=== PATIENT | female | born 1955 | race Caucasian/White ===

== ENCOUNTER 2017-06-23 12:47 | Inpatient (IN) | payer OTHER ==
[2017-06-23] MEDS ORDERED: LEVALBUTEROL 1.25 MG/3 ML NEB ONE (13:04)
[2017-06-23] MEDS ORDERED: NA CHLORIDE 0.9% 500 ML ONE (13:29)
[2017-06-23] MEDS ORDERED: Magnesium Sulfate 2gm IVPB 2 G/50 ML BAG IV ONE (13:29)
[2017-06-23] MEDS ORDERED: METHYLPREDNISOLONE 125 MG INJ ONE (13:29)
[2017-06-23] MEDS ORDERED: ASPIRIN 81 MG CHEWABLE TABLET ONE (13:29)
[2017-06-23] MEDS ORDERED: METOPROLOL TARTRATE 5 MG/5 ML INJ IV ONE (13:36)
[2017-06-23 14:07] LABS: Arterial Blood Carboxyhemoglob 1.2 % (0-1.5); Blood Gas Oxyhemoglobin 93.1 % (94-97); Blood O2 Saturation 94.6 % (92-98.5)
[2017-06-23] MEDS ORDERED: NA CHLORIDE 0.9% 1,000 ML ONE (14:07)
[2017-06-23 14:11] LABS: Absolute Lymphocytes (CBC) 1.1 K/uL (0.7-4.9); Absolute Monocytes 0.4 K/uL (0.1-1.3); Absolute Neutrophil 5.2 K/uL (1.8-8.0); Basophils % 0.5 % (0-1.3); Eosinophils % 8.3 % (0-4.4); Hematocrit 38.4 % (36.0-45.0); Lymphocytes % 14.7 % (15.3-44.8); MCH 28.4 pg (27.0-35.0); MCV 84.8 fL (80-100); MPV 8.6 fL (7.6-11.3); Monocytes % 5.7 % (3.3-12.3); RBC Red Blood Cell Count 4.52 M/uL (3.86-4.86)
[2017-06-23 14:15] LABS: Protime INR 1.05
[2017-06-23 14:18] LABS: Potassium 3.7 mEq/L (3.6-5.0)
[2017-06-23 14:25] LABS: Albumin 4.7 g/dL (3.2-5.5); Bilirubin Direct 0.1 mg/dL (0-0.2); Bilirubin Total 0.4 mg/dL (0.3-1.2); Magnesium 1.6 mg/dL (1.8-2.5); Protein, Total 8.8 g/dL (6.0-8.3)
--- NOTE | 2017-06-23 14:28 | RAD REPORT ---
EXAM DESCRIPTION: RAD - Chest Single View - 06/23/2017 2:02 pm CLINICAL HISTORY: Dyspnea, cough, shortness of breath COMPARISON: September 2010 TECHNIQUE: AP portable chest image was obtained 1354 hours . FINDINGS: No peripheral mass, consolidation or failure finding. Lung markings are not substantially different from the comparison. A few small granulomas are seen. Trachea is midline. Heart and vascula ture are normal. No measurable pleural effusion and no pneumothorax. No gross bony abnormality seen. No acute aortic findings suspected. IMPRESSION: No acute cardiopulmonary process. No significant change from prior imaging.
--- NOTE | 2017-06-23 15:18 | RAD REPORT ---
EXAM DESCRIPTION: CT - Chest For Pe Angio - 06/23/2017 3:02 pm CLINICAL HISTORY: Shortness of breath COMPARISON: None. TECHNIQUE: Dynamically enhanced 3 mm thick images of the chest were obtained during administration o f approximately 150mL Isovue 370 IV contrast. Coronal and oblique reconstruction images were generate d and reviewed. Exam utilizes a protocol to evaluate the pulmonary arterial tree. All CT scans are performed using dose optimization technique as appropriate and may include automated exposure control or mA/KV adjustment according to patient size. FINDINGS: No pulmonary emboli are identified. The aorta as imaged shows no acute or suspicious finding. No pericardial thickening or effusion. No focal consolidation. Minimal stranding in each posterior gutter could be subsegmental atelectasis or minimal infiltrate. Motion limits fine detail in the lung parenchyma. No pleural effusion or pleur al thickening. No mediastinal or hilar suspicious masses. No chest wall masses or abnormal axillary lymphadenopathy. IMPRESSION: No pulmonary emboli identified. Subsegmental atelectasis versus minimal interstitial infiltrate each posterior gutter.
[2017-06-23] MEDS ORDERED: Levofloxacin 750mg IV 750 MG/150 ML BAG IV ONE (15:37)
--- NOTE | 2017-06-23 15:43 | EDPHYS ---
Physician Documentation [facility] Name: Nessa Medrano Age: 62 yrs Sex: Female : 1955 Arrival Date: 06/23/2017 Time: 12:51 Bed 4 Private MD: Calvin Diaz E ED Physician Calvin Fung HPI: 06/23 13:09 This 62 yrs old Female presents to ER via Ambulatory with complaints of cp Breathing Difficulty. 13:09 The patient has shortness of breath at rest. Onset: The symptoms/episode began/occurred cp 2 day(s) ago. 13:09 Duration: The symptoms are continuous, and are steadily getting worse. Associated signs cp and symptoms: Pertinent negatives: diaphoresis, fever, hemoptysis, vomiting. 13:09 The patient has not experienced similar symptoms in the past. cp Historical: - Allergies: 12:56 No Known Allergies; hj - Home Meds: 12:56 metformin 500 mg Oral Tb24 1 tab once daily [Active]; Tricor 145 mg Oral tab 1 tab once hj daily [Active]; Xanax 0.5 mg Oral tab 1 tab 3 times per day [Active]; - PMHx: 12:56 Diabetes - NIDDM; Hyperlipidemia; hj - PSHx: 12:56 rotator cuff; hj - Immunization history:: Adult Immunizations unknown. - Social history:: Smoking status: Patient/guardian denies using tobacco. ROS: 13:50 Constitutional: Negative for body aches, chills, fever, poor PO intake. cp 13:50 Eyes: Negative for injury, pain, redness, and discharge. cp 13:50 ENT: Negative for drainage from ear(s), ear pain, sore throat, difficulty swallowing, difficulty handling secretions. 13:50 Cardiovascular: Negative for chest pain, edema. 13:50 Respiratory: Positive for cough, shortness of breath, Negative for hemoptysis. 13:50 Abdomen/GI: Negative for abdominal pain, vomiting, diarrhea, constipation, black/tarry stool, rectal bleeding. 13:50 Back: Negative for radiated pain. 13:50 : Negative for urinary symptoms. 13:50 Skin: Negative for cellulitis, rash. 13:50 Neuro: Negative for altered mental status, headache, syncope, near syncope, weakness. 13:50 All other systems are negative. Exam: 13:21 ECG was reviewed by the Attending Physician. cp 13:53 Constitutional: The patient appears alert, awake, non-toxic, well developed, well cp nourished, in obvious distress, moderately distressed. 13:53 Head/Face: Normocephalic, atraumatic. Eyes: Pupils equal round and reactive to light, cp extra-ocular motions intact. Lids and lashes normal. Conjunctiva and sclera are non-icteric and not injected. Cornea within normal limits. Periorbital areas with no swelling, redness, or edema. ENT: Nares patent. No nasal discharge, no septal abnormalities noted. Tympanic membranes are normal and external auditory canals are clear. Oropharynx with no redness, swelling, or masses, exudates, or evidence of obstruction, uvula midline. Mucous membranes moist. Neck: Trachea midline, no thyromegaly or masses palpated, and no cervical lymphadenopathy. Supple, full range of motion without nuchal rigidity, or vertebral point tenderness. No Meningismus. Chest/axilla: Normal chest wall appearance and motion. Nontender with no deformity. No lesions are appreciated. 13:53 Cardiovascular: Rate: tachycardic, Rhythm: regular, Pulses: Pulses are 2+ in right radial artery and left radial artery. Heart sounds: murmur, not appreciated, Edema: is not appreciated, JVD: is not appreciated. 13:53 Respiratory: moderate respiratory distress is noted, Respirations: labored breathing, that is moderate, shallow respirations, that is moderate, tachypnea, that is moderate, Breath sounds: decreased breath sounds, that are moderate, throughout, + upper airway congestion. wheezing: is not appreciated, is heard diffusely. 13:53 Abdomen/GI: Inspection: abdomen appears normal, Bowel sounds: active, all quadrants, Palpation: abdomen is soft and non-tender, in all quadrants, rebound tenderness, is not appreciated, voluntary guarding, is not appreciated, involuntary guarding, is not appreciated. 13:53 Back: pain, is absent, ROM is normal. 13:53 Skin: cellulitis, is not appreciated, no rash present. 13:53 Neuro: Orientation: to person, place \T\ time. Mentation: is normal, Cerebellar function: is grossly normal, Motor: moves all fours, strength is normal, Sensation: no obvious gross deficits. Vital Signs: 12:57 BP 181 / 94; Pulse 149; Resp 25; Temp 99.0(TE); Pulse Ox 84% on R/A; Weight 72.57 kg; hj Height 5 ft. 3 in. (160.02 cm); Pain 0/10; 14:18 BP 151 / 67; Pulse 113; Resp 20; Pulse Ox 99% on 8% Venturi mask; aj 12:57 Body Mass Index 28.34 (72.57 kg, 160.02 cm) hj MDM: 13:09 Patient medically screened. cp 14:00 Differential diagnosis: Bronchitis CHF exacerbation, Chronic Obstructive Pulmonary cp Disease pneumonia, pulmonary edema, Pulmonary Embolism Sepsis Unstable Angina. 15:35 Data reviewed: vital signs, nurses notes, lab test result(s), EKG, radiologic studies, cp CT scan, plain films, and as a result, I will admit patient. 15:35 Antibiotic administration: Levaquin given. Response to treatment: the patient's cp symptoms have markedly improved after treatment. 15:40 Physician consultation: Desmond Leger MD was called at 15:35, was contacted at 15:35, regarding admission, to the telemetry unit. patient's condition. 06/23 13:08 Order name: ABG; Complete Time: 14:31 cp 06/23 13:08 Order name: Blood Culture Adult (2) cp 05/ 13:08 Order name: BMP; Complete Time: 14:31 cp 05 13:08 Order name: BNP; Complete Time: 14:31 cp 06/23 13:08 Order name: CBC with Diff; Complete Time: 14:31 cp 06/23 15:22 Interpretation: Normal except: LYM% 14.7; EOSINOPHIL % 8.3; EOSA 0.6. cp 0503 13:08 Order name: Ckmb; Complete Time: 14:31 cp 05 13:08 Order name: CPK; Complete Time: 14:31 cp 06/23 13:08 Order name: Hepatic Function; Complete Time: 14:31 cp 05 13:08 Order name: Lipase; Complete Time: 14:31 cp 05 13:08 Order name: Magnesium; Complete Time: 14:31 cp 05 13:08 Order name: PT-INR; Complete Time: 14:31 cp 05 13:08 Order name: Ptt, Activated; Complete Time: 14:31 cp 05 13:08 Order name: Troponin (emerg Dept Use Only); Complete Time: 14:31 cp 06/23 13:08 Order name: Influenza Screen (a \T\ B) cp 06/23 13:08 Order name: XRAY CXR (1 view); Complete Time: 14:31 cp 06/23 13:08 Order name: EKG; Complete Time: 13:44 cp 06/23 13:22 Order name: Lactate; Complete Time: 15:21 cp 06/23 15:21 Interpretation: Reviewed. cp 05 13:22 Order name: Procalcitonin; Complete Time: 15:35 cp 06/23 14:32 Order name: CT Chest For PE Angio; Complete Time: 15:21 cp 06/23 15:23 Order name: Urine Microscopic Only 06/23 16:40 Order name: Urine Dipstick--Ancillary (enter results) 06/23 16:47 Order name: Urine Dipstick-Ancillary EDOR 06/23 17:56 Order name: Lactate Sepsis 2 HR Follow-up EDOR 06/23 13:08 Order name: Cardiac monitoring; Complete Time: 13:46 cp 06/23 13:08 Order name: EKG - Nurse/Tech; Complete Time: 13:46 cp 06/23 13:08 Order name: IV Saline Lock; Complete Time: 13:46 cp 06/23 13:08 Order name: Labs collected and sent; Complete Time: 13:46 cp 06/23 13:08 Order name: O2 Per Protocol; Complete Time: 13:46 cp 06/23 13:08 Order name: O2 Sat Monitoring; Complete Time: 13:46 cp 06/23 13:08 Order name: Urine Dipstick-Ancillary (obtain specimen); Complete Time: 16:14 cp EC:21 Rate is 142 beats/min. Rhythm is regular. MD interval is normal. QRS interval is cp normal. QT interval is normal. Interpreted by me. Reviewed by me. Administered Medications: 13:33 Drug: SOLU-Medrol 125 mg Route: IVP; Site: right antecubital; hb 13:33 Drug: Aspirin 325 mg Route: PO; hb 13:33 Drug: Magnesium Sulfate 2 grams Route: IVPB; Infused Over: 2 hrs; Site: right hb antecubital; 15:30 Follow up: Response: No adverse reaction; IV Status: Completed infusion hb 13:33 Drug: NS 0.9% 500 ml Route: IV; Rate: bolus; Site: right antecubital; hb 14:15 Follow up: Response: No adverse reaction; IV Status: Completed infusion hb 13:44 Drug: Lopressor 5 mg Route: IVP; Site: right antecubital; hb 14:30 Follow up: Response: No adverse reaction hb 14:11 Drug: NS 0.9% (30 ml/kg) 30 ml/kg Route: IV; Rate: bolus; Site: right antecubital; aj 15:44 Drug: LevaQUIN 750 mg Volume: 150 ml; Route: IVPB; Infused Over: 90 mins; Site: right hb antecubital; Disposition: 06/24 06:52 Co-signature as Attending Physician, Calvin Fung MD I agree with the assessment and nd plan of care. Disposition: 06/23/17 15:42 Hospitalization ordered by Desmond Leger for Inpatient Admission. Preliminary diagnosis are Hypoxemia, Shortness of breath. - Bed requested for Telemetry/MedSurg (Inpatient). - Status is Inpatient Admission. aj - Condition is Stable. - Problem is new. - Symptoms have improved. UTI on Admission? No Signatures: Dispatcher [employer] EDMS Vielka Danielle RN RN aj Williams, Irene, RN RN iw Gallardo, Ana ag Joaquin, Henry, RN Vel Sousa PA PA cp Baxter, Heather, Calvin Anderson RN, MD MD nd Corrections: (The following items were deleted from the chart) 06/23 15:22 15:22 Normal except: LYM% 14.7; EOSINOPHIL % 8.3. cp cp 17:05 15:42 Hospitalization Ordered by Desmond Leger MD for Inpatient Admission. Preliminary ag diagnosis is Hypoxemia; Shortness of breath. Bed requested for Telemetry/MedSurg (Inpatient). Status is Inpatient Admission. Condition is Stable. Problem is new. Symptoms have improved. UTI on Admission? No. cp 17:59 17:05 06/23/2017 15:42 Hospitalization Ordered by Desmond Leger MD for Inpatient aj Admission. Preliminary diagnosis is Hypoxemia; Shortness of breath. Bed requested for Telemetry/MedSurg (Inpatient). Status is Inpatient Admission. Condition is Stable. Problem is new. Symptoms have improved. UTI on Admission? No. ag
--- NOTE | 2017-06-23 15:43 | ER ---
Nurse's Notes [facility] Name: Nessa Medrano Age: 62 yrs Sex: Female : 1955 Arrival Date: 06/23/2017 Time: 12:51 Bed 4 Private MD: Calvin Diaz E Diagnosis: Hypoxemia;Shortness of breath Presentation: 06/23 12:53 Presenting complaint: Patient states: i have a cold and i had a hard time breathing; hj this started Tuesday, nasal drainage, congestion and now i have difficulty breathing; denies fever and chills; took Tessalon perle;. Transition of care: patient was not received from another setting of care. Onset of symptoms was June 23, 2017. Initial Sepsis Screen: Does the patient meet any 2 criteria? No. Patient's initial sepsis screen is negative. Does the patient have a suspected source of infection? No. Patient's initial sepsis screen is negative. Care prior to arrival: None. 12:53 Method Of Arrival: Ambulatory 12:53 Acuity: CONRADO 3 hj 13:02 Acuity: CONRADO 2 hb Triage Assessment: 12:56 General: Appears in no apparent distress. uncomfortable, Behavior is calm, cooperative, hj appropriate for age. Pain: Denies pain. Respiratory: Reports labored breathing Onset: The symptoms/episode began/occurred yesterday, the patient has moderate shortness of breath. Historical: - Allergies: 12:56 No Known Allergies; hj - Home Meds: 12:56 metformin 500 mg Oral Tb24 1 tab once daily [Active]; Tricor 145 mg Oral tab 1 tab once hj daily [Active]; Xanax 0.5 mg Oral tab 1 tab 3 times per day [Active]; - PMHx: 12:56 Diabetes - NIDDM; Hyperlipidemia; hj - PSHx: 12:56 rotator cuff; hj - Immunization history:: Adult Immunizations unknown. - Social history:: Smoking status: Patient/guardian denies using tobacco. Screenin:24 Abuse screen: Denies threats or abuse. Denies injuries from another. Nutritional iw screening: No deficits noted. Tuberculosis screening: No symptoms or risk factors identified. 17:50 Fall Risk None identified. iw Assessment: 12:56 Cardiovascular: Rhythm is. Respiratory: Airway is patent Respiratory effort is even, hj unlabored, Respiratory pattern is regular, Breath sounds with wheezes. 13:21 General: Appears in no apparent distress. Behavior is calm, cooperative. General: iw Denies fever. Neuro: Level of Consciousness is awake, alert, obeys commands, Oriented to person, place, time, situation. Cardiovascular: Capillary refill < 3 seconds in bilateral fingers Patient's skin is warm and dry. Cardiovascular: Reports palpitations, shortness of breath, Denies chest pain. Respiratory: Reports shortness of breath cough that is Respiratory effort is even, unlabored. Derm: Skin is pink, warm \T\ dry. normal. Musculoskeletal: Range of motion: intact in all extremities. Vital Signs: 12:57 BP 181 / 94; Pulse 149; Resp 25; Temp 99.0(TE); Pulse Ox 84% on R/A; Weight 72.57 kg; hj Height 5 ft. 3 in. (160.02 cm); Pain 0/10; 14:18 BP 151 / 67; Pulse 113; Resp 20; Pulse Ox 99% on 8% Venturi mask; aj 12:57 Body Mass Index 28.34 (72.57 kg, 160.02 cm) ED Course: 12:51 Patient arrived in ED. rg4 12:51 Calvin Diaz MD is Private Physician. rg4 12:55 Triage completed. hj 12:57 Arm band placed on right wrist. hj 13:00 Initial lab(s) drawn, by me. Inserted saline lock: 20 gauge in right antecubital area, iw using aseptic technique. Blood collected. 13:06 Vel Rubio PA is PHCP. cp 13:06 Calvin Fung MD is Attending Physician. cp 13:19 Lauren Espinoza, SHA is Primary Nurse. iw 13:22 EKG done, by dental laboratory technician apprentice. reviewed by Vel SALAS. dt2 13:56 X-ray completed. Portable x-ray completed in exam room. Patient tolerated procedure sw well. 14:02 XRAY CXR (1 view) In Process Unspecified. EDMS 15:01 CT completed. Patient tolerated procedure well. Patient moved to CT via stretcher. nj Patient moved back from CT. 15:02 CT Chest For PE Angio In Process Unspecified. EDMS 15:41 Desmond Leger MD is Hospitalizing Provider. cp 16:14 Urine Microscopic Only Sent. hb 17:57 Patient has correct armband on for positive identification. aj 17:57 No provider procedures requiring assistance completed. Patient admitted, IV remains in aj place. intact. Administered Medications: 13:33 Drug: SOLU-Medrol 125 mg Route: IVP; Site: right antecubital; hb 13:33 Drug: Aspirin 325 mg Route: PO; hb 13:33 Drug: Magnesium Sulfate 2 grams Route: IVPB; Infused Over: 2 hrs; Site: right hb antecubital; 15:30 Follow up: Response: No adverse reaction; IV Status: Completed infusion hb 13:33 Drug: NS 0.9% 500 ml Route: IV; Rate: bolus; Site: right antecubital; hb 14:15 Follow up: Response: No adverse reaction; IV Status: Completed infusion hb 13:44 Drug: Lopressor 5 mg Route: IVP; Site: right antecubital; hb 14:30 Follow up: Response: No adverse reaction hb 14:11 Drug: NS 0.9% (30 ml/kg) 30 ml/kg Route: IV; Rate: bolus; Site: right antecubital; aj 15:44 Drug: LevaQUIN 750 mg Volume: 150 ml; Route: IVPB; Infused Over: 90 mins; Site: right hb antecubital; Outcome: 15:42 Decision to Hospitalize by Provider. cp 17:57 Admitted to Med/surg accompanied by tech, via stretcher, with chart. aj 17:57 Condition: good 17:57 Instructed on the need for admit. 17:59 Patient left the ED. aj Signatures: Dispatcher [employer] EDMS Vielka Danielle RN RN aj Williams, Irene RN Bhumika Dillon Henry, RN RN hj Page, Corey, PA PA cp Baxter, Heather, RN RN hb Garcia, Rubi rg4 Ovidio Kim Danielle dt2 Corrections: (The following items were deleted from the chart) 12:59 12:57 Pulse 149bpm; Resp 25bpm; Pulse Ox 84% RA; Temp 99.0F Temporal; 72.57 kg; Height hj 5 ft. 3 in.; BMI: 28.3; Pain 0/10; hj
--- NOTE | 2017-06-23 16:20 | EKG ---
Test Date: 2017-06-23 Test Time: 13:15:18 Director Of Sales: KASSIDY MEASUREMENT RESULTS: Intervals: Rate: 142 VT: 134 QRSD: 86 QT: 280 QTc: 430 [place]: P: 72 VT: 134 QRS: 81 T: 49 INTERPRETIVE STATEMENTS: Sinus tachycardia Otherwise normal ECG Compared to ECG 10/01/2010 22:14:39 Sinus rhythm no longer present Electronically Signed On 06-23-17 16:18:52 CDT by Mason Conway
[2017-06-23] MEDS ORDERED: ONDANSETRON 4 MG/2 ML VIAL IV PRN (16:24)
[2017-06-23] MEDS ORDERED: ACETAMINOPHEN 500 MG TAB PO PRN (16:24)
[2017-06-23] MEDS: INSULIN -REGULAR HUMAN 50 UNIT/0.5 ML ML SQ SCH ×2 (16:30→21:00)
[2017-06-23] MEDS ORDERED: GLUCAGON 1 MG/VIAL IM PRN (16:43)
[2017-06-23] MEDS ORDERED: D50W 25 GM/50 ML SYRINGE IV PRN (16:43)
[2017-06-23 16:47] LABS: Urine Blood NEGATIVE (NEG); Urine Glucose NEGATIVE (NEG); Urine Protein NEGATIVE (NEG)
[2017-06-23 16:49] LABS: Urine Bacteria NONE SEEN /HPF (<20); Urine Culture Reflex Order NOT NEEDED; Urine RBC NONE SEEN /HPF (NONE SEEN)
[2017-06-23] MEDS: ENOXAPARIN 40 MG/0.4 ML SQ SCH (18:15)
[2017-06-23] MEDS: NA CHLORIDE 0.9% 1,000 ML IV SCH (18:16)
[2017-06-23] MEDS: METHYLPREDNISOLONE 40 MG INJ IV SCH ×2 (18:23→23:55)
[2017-06-23] MEDS ORDERED: POTASSIUM CL SA 10 MEQ TAB PO ONE (20:00)
[2017-06-23] MEDS: LEVALBUTEROL 1.25 MG/3 ML NEB NEB PRN (21:10)
[2017-06-23] MEDS: IPRATROPIUM BROM 0.5MG/2.5ML NEB PRN (21:10)
[2017-06-24 02:31] VITALS: BMI 28.3
[2017-06-24] MEDS: NA CHLORIDE 0.9% 1,000 ML IV SCH ×3 (03:53→23:00)
--- NOTE | 2017-06-24 05:04 | P.HP ---
Certification for Inpatient Patient admitted to: Inpatient With expected LOS: >2 Midnights Practitioner: I am a practitioner with admitting privileges, knowledge of patient current condition, hospital course, and medical plan of care. Services: Services provided to patient in accordance with Admission requirements found in Title 42 Section 412.3 of the Code of Federal Regulations Patient History Date of Service: 06/23/17 Reason for admission: COPD exacerbation History of Present Illness: Ms Medrano is a 62 years old woman with history of COPD, IDDM, HTN, who start about 2 days ago with progressive SOB. It was associated with runny nose, productive cough with greenish secretions and wheezing. She denied fever or chills. At arrival to ER her temperature was 99.8 F. Lab work remarkable for normal WBC count, but elevated lactate. CTA shows Subsegmental atelectasis versus minimal interstitial infiltrate each posterior gutter, no PE. Allergies No Known Allergies Allergy (Verified 06/23/17 21:48) Home Medications: Alprazolam [Xanax] 0.5 mg PO BEDTIME PRN 06/24/17 Fenofibrate [Tricor] 145 mg PO DAILY 06/24/17 Metformin ER [Glucophage ER] 500 mg PO DAILY 06/24/17 - Past Medical/Surgical History Diabetic: Yes -: hyperlipedemia -: Left rotator cuff sx - Family History Mother -: Hypertension, Stroke Notes: dementia Father -: Cancer - Social History Smoking Status: Never smoker Alcohol use: No CD- Drugs: No Caffeine use: Yes Place of Residence: Home Review of Systems 10-point ROS is otherwise unremarkable Physical Examination - Vital Signs Temperature: 98.6 F Blood Pressure: 135/72 Pulse: 103 Respirations: 18 Pulse Ox (%): 96 - Physical Exam General: Alert, In no apparent distress HEENT: Atraumatic, PERRLA, Mucous membr. moist/pink, EOMI, Sclerae nonicteric Neck: Supple, 2+ carotid pulse no bruit, No LAD, Without JVD or thyroid abnormality Respiratory: Diminished, Expiratory wheezes Cardiovascular: Regular rate/rhythm, Normal S1 S2 Gastrointestinal: Normal bowel sounds, No tenderness Musculoskeletal: No tenderness Integumentary: No rashes Neurological: Normal speech, Normal strength at 5/5 x4 extr, Normal tone, Normal affect Lymphatics: No axilla or inguinal lymphadenopathy - Studies Laboratory Data (last 24 hrs) 06/23/17 13:35: PT 12.4, INR 1.05, APTT 30.0 06/23/17 13:35: WBC 7.3, Hgb 12.9, Hct 38.4, Plt Count 227 06/23/17 13:35: B-Natriuretic Peptide 29 06/23/17 13:35: Sodium 141, Potassium 3.7, BUN 14, Creatinine 0.79, Glucose 132 H, Magnesium 1.6 L, Total Bilirubin 0.4, AST 25, ALT 26, Alkaline Phosphatase 55 , Lipase 23 Microbiology Data (last 24 hrs): 06/23/17 13:10 Nasopharnyx Influenza Type A Antigen Screen - Final 06/23/17 13:10 Nasopharnyx Influenza Type B Antigen Screen - Final Assessment and Plan - Problems (Diagnosis) (1) COPD exacerbation Current Visit: Yes Status: Acute (2) Acute bronchitis Current Visit: Yes Status: Acute Qualifiers: Bronchitis organism: unspecified organism Qualified Code(s): J20.9 - Acute bronchitis, unspecified (3) HTN (hypertension) Current Visit: Yes Status: Acute Qualifiers: Hypertension type: essential hypertension Qualified Code(s): I10 - Essential (primary) hypertension (4) Diabetes mellitus Current Visit: Yes Status: Acute Qualifiers: Diabetes mellitus type: type 2 Diabetes mellitus underwriting technician insulin use: without alf use Diabetes mellitus complication status: with unspecified complications Qualified Code(s): E11.8 - Type 2 diabetes mellitus with unspecified complications - Plan plan: - IV fluids - IV steroids and breathing treatments. - IV steroids - Consult Dr Mcgrath. - Advance Directives Does patient have a Living Will: No Does patient have a Durable POA for Healthcare: No - Code Status/Comfort Care Code Status Assessed: Yes Code Status: Full Code
[2017-06-24] MEDS: METHYLPREDNISOLONE 40 MG INJ IV SCH ×3 (06:18→21:12)
[2017-06-24 06:27] LABS: Absolute Lymphocytes (CBC) 0.7 K/uL (0.7-4.9); Absolute Monocytes 0.1 K/uL (0.1-1.3); Absolute Neutrophil 8.5 K/uL (1.8-8.0); Basophils % 0.1 % (0-1.3); Hematocrit 35.1 % (36.0-45.0); Lymphocytes % 7.4 % (15.3-44.8); MCV 84.9 fL (80-100); MPV 8.4 fL (7.6-11.3); Monocytes % 1.5 % (3.3-12.3); RBC Red Blood Cell Count 4.14 M/uL (3.86-4.86)
[2017-06-24 06:42] LABS: Magnesium 1.8 mg/dL (1.8-2.5); Potassium 4.5 mEq/L (3.6-5.0)
[2017-06-24] MEDS ORDERED: MAGNESIUM SULFATE 1 gm IVPB 1 GM/100 ML BAG IV ONE (07:12)
[2017-06-24] MEDS: INSULIN -REGULAR HUMAN 50 UNIT/0.5 ML ML SQ SCH ×4 (07:30→21:00)
[2017-06-24] MEDS: ENOXAPARIN 40 MG/0.4 ML SQ SCH (09:34)
[2017-06-24 10:14] LABS: Blood Morphology Comment NOT SEEN (NOT SEEN); Platelet Estimate ADEQ; Urine White Blood Cell Casts OK
[2017-06-24] MEDS ORDERED: ALPRAZOLAM 0.5 MG TABLET PO PRN (10:45)
[2017-06-24] MEDS: LEVALBUTEROL 1.25 MG/3 ML NEB NEB PRN ×2 (11:01→20:34)
[2017-06-24] MEDS: IPRATROPIUM BROM 0.5MG/2.5ML NEB PRN ×2 (11:01→20:34)
[2017-06-24] MEDS ORDERED: Levofloxacin 750mg IV 750 MG/150 ML BAG IV SCH (15:00)
--- NOTE | 2017-06-24 16:41 | PN ---
Date of Progress Note: 06/24/2017 Subjective: The patient seen and examined, chart reviewed, and case discussed with RN. The patient states that, her shortness of breath is slightly better, however, still getting short-winded with exe rtion. Review of Systems: Negative except as above. Medications: Reviewed. Objective: Vital Signs: Temperature 99.2, heart rate 93, blood pressure 145/70, respirations 19, an d O2 92% on 2 L via nasal cannula. General: Awake, alert, oriented x3. Some mild respiratory distress. Ill-appearing female. CV: S1, S2. No murmurs. Peripheral pulses present. Respiratory: Diminished breath sounds. Diffuse wheezing. No stridor. No use of accessory muscles. Gastrointestinal: Abdomen is soft, nontender, nondistended. Positive bowel sounds. Extremities: No clubbing, cyanosis, or edema. Neurologic: Nonfocal. Laboratory Data: Sodium 140, potassium 4.5, chloride 110, CO2 23, BUN 13, creatinine 0.76, and gluco se 145. Lactic acid is 16.7. Previous lactic acid was 33.3. Calcium 9.7, magnesium 1.8. WBC 9.3, H and H 12, 35.1, platelets 221, and neutrophils 91%. Blood cultures, no growth to date. Influenza screen is negative. CT angio chest shows no PE, subsegmental atelectasis versus minimal interstitial infiltrate, each posterior gutter. Assessment And Plan: A 62-year-old female with; 1.Acute respiratory distress with hypoxia, likely secondary to chronic obstructive pulmonary disease exacerbation. 2.Acute chronic obstructive pulmonary disease exacerbation. We will continue with nebulizer treatme nts, steroids. We will obtain room air sats and wean off oxygen as tolerated. CT angio negative for pulmonary embolism. 3.Acute bronchitis. Continue with empiric antibiotics. 4.Essential hypertension, stable. We will resume home medications. 5.Diabetes mellitus type 2 without long-term use of insulin with hyperglycemia. 6.Gastrointestinal and deep venous thrombosis prophylaxis addressed. 7.Hyperlipidemia. SA/MODL Voice ID: [id number] Report ID: [id number]
[2017-06-25] MEDS: NA CHLORIDE 0.9% 1,000 ML IV SCH ×2 (00:20→09:21)
[2017-06-25 05:19] LABS: Absolute Lymphocytes (CBC) 0.6 K/uL (0.7-4.9); Absolute Monocytes 0.3 K/uL (0.1-1.3); Absolute Neutrophil 8.6 K/uL (1.8-8.0); Hematocrit 31.5 % (36.0-45.0); Lymphocytes % 6.4 % (15.3-44.8); MCH 29.4 pg (27.0-35.0); MCV 84.2 fL (80-100); MPV 8.9 fL (7.6-11.3); Monocytes % 3.2 % (3.3-12.3); RBC Red Blood Cell Count 3.75 M/uL (3.86-4.86)
[2017-06-25 05:32] LABS: Magnesium 1.9 mg/dL (1.8-2.5); Potassium 4.8 mEq/L (3.6-5.0)
[2017-06-25] MEDS: INSULIN -REGULAR HUMAN 50 UNIT/0.5 ML ML SQ SCH ×2 (07:30→11:30)
[2017-06-25] MEDS: ENOXAPARIN 40 MG/0.4 ML SQ SCH (09:00)
[2017-06-25] MEDS ORDERED: METFORMIN ER 500 MG TAB PO SCH (09:00)
[2017-06-25] MEDS ORDERED: FENOFIBRATE 160 MG TAB PO SCH (09:00)
[2017-06-25] MEDS: METHYLPREDNISOLONE 40 MG INJ IV SCH (09:20)
--- NOTE | 2017-06-25 10:09 | P.CNS ---
Date of Consult: 06/25/17 Reason for Consult: Shortness of breath Chief Complaint: Shortness of breath History of Present Illness: Patient is 62 years of age she developed apparently a cord woke up shortness of breath became progressively worse and appeared in the hospital was given a treatment with Xopenex and Atrovent that relieved her symptoms he does have some dyspnea on exertion particularly when she goes out to move for quite a while. Also been complaining of some wheezing at night patient has never smoked, never had any problems with her heart or lungs she feels fine now Allergies No Known Allergies Allergy (Verified 06/23/17 21:48) Home Medications: Alprazolam [Xanax] 0.5 mg PO BEDTIME PRN 06/24/17 Fenofibrate [Tricor] 145 mg PO DAILY 06/24/17 Metformin ER [Glucophage ER] 500 mg PO DAILY 06/24/17 - Past Medical/Surgical History Diabetic: Yes -: hyperlipedemia -: Left rotator cuff sx - Family History Mother Medical History: Hypertension, Stroke Notes: dementia Father Medical History: Cancer - Social History Alcohol use: No CD- Drugs: No Caffeine use: Yes Place of Residence: Home Review of Systems 10-point ROS is otherwise unremarkable Physical Examination Temp Pulse Resp BP Pulse Ox 97.8 F 59 16 130/70 94 06/25/17 08:00 06/25/17 08:00 06/25/17 08:00 06/25/17 08:00 06/25/17 08:00 General: Alert, Oriented x3 HEENT: Atraumatic Neck: Supple Respiratory: Expiratory wheezes (Expiratory wheezing) Cardiovascular: No edema Gastrointestinal: Normal bowel sounds, Soft and benign - Problems (1) Asthma Current Visit: Yes Status: Acute Plan: Patient is 62 years of age admitted with worsening shortness of breath that improved with bronchodilators she does have intermittent dyspnea on exertion wheezing at night I strongly suspect that she has underlying obstructive airways disease most likely asthma she has never smoked patient can be discharged home on Advair 251 puff twice a day at Pro air as needed labs reviewed x-rays clear chemistries unremarkable saturation satisfactory follow up in my office in 2 weeks
[2017-06-25] MEDS: IPRATROPIUM BROM 0.5MG/2.5ML NEB PRN (10:35)
[2017-06-25] MEDS: LEVALBUTEROL 1.25 MG/3 ML NEB NEB PRN (10:35)
[2017-06-25 12:08] VITALS: BP 148/78; TEMP 98.8
[2017-06-25 12:35] VITALS: O2SAT 94
--- NOTE | 2017-06-26 01:19 | DS ---
Date of Discharge: 06/25/2017 Consultants: Dr. Mcgrath with Pulmonology. Admitting Diagnoses: 1.Acute asthma exacerbation. 2.Acute chronic obstructive pulmonary disease exacerbation. 3.Acute bronchitis. 4.Hypertension. 5.Diabetes mellitus type 2 with long-term use of insulin with hyperglycemia. Discharge Diagnoses: 1.Acute respiratory distress with hypoxia secondary to chronic obstructive pulmonary disease and ast hma. 2.Acute asthma exacerbation. The patient also has some underlying obstructive pulmonary disease, im proved with nebulizer treatments, weaned off oxygen. CT angio negative for PE. 3.Acute bronchitis, improved. 4.Essential hypertension, stable. 5.Diabetes mellitus type 2 without long-term use of insulin with hyperglycemia. 6.Hyperlipidemia, mixed. 7.Sepsis. Hospital Course: The patient is a 62-year-old female who came into the ER with shortness of breath. The patient was thought to be in asthma, COPD exacerbation. She was hypoxic. She was started on elizondo pplemental oxygen. Normal white count, however, her lactate was elevated. She was thought to be sep tic. CT angio was done which was negative for PE, did show some atelectasis versus minimal infiltrate in e ach posterior gutter. The patient was started on prophylactic antibiotics. The patient was seen by Pulmonology, who felt that this was asthma exacerbation with some underlying obstructive disease. He r medications including inhalers were adjusted. The patient did well over the course of the hospital stay. She was weaned off supplemental oxygen. Her white count remained stable. Her cultures remai nat negative. Flu screen was negative as well. The patient was able to ambulate without any distres s. Her room air saturations were 94%. The patient was then cleared for discharge from Pulmonology s [facility]. No further antibiotic required. Condition: Stable. Activity: No strenuous activity. Return to work Tuesday if continued to improve. Medications: As per medication reconciliation list. Followup: Follow up with primary care physician, Dr. Diaz in 2-3 days. Follow up with pulmonologis t, Dr. Mcgrath, in 2 weeks. Return to ER for worsening condition. Diet: Diabetic diet. Time Spent: Total time spent discharging patient was 37 minutes. Physical Examination: General: Awake, alert, oriented, in no acute distress. CV: S1, S2. No murmurs. Respiratory: Moving air well. Some mild wheezing gastrointestinal. Abdomen: Abdomen is soft, nontender, nondistended. Positive bowel sounds. Extremities: No clubbing, cyanosis, edema. Neurologic: Nonfocal. SA/MODL Voice ID: [id number] Report ID: [id number]
== END 2017-06-25 14:23 | disposition home or self-care (01) | DRG 872 ==
LOC: ER 12:47 → ERHOLD 15:42 → 4TH 17:36
PROVIDERS: ADMIT Family Medicine; ATTEND Internal Medicine
DX: A41.9 Sepsis, unspecified organism (principal); J44.1 Chronic obstructive pulmonary disease with (acute) exacerbation; J44.0 Chronic obstructive pulmonary disease with (acute) lower respiratory infection; R06.03 Acute respiratory distress; J20.9 Acute bronchitis, unspecified; E11.65 Type 2 diabetes mellitus with hyperglycemia; E78.2 Mixed hyperlipidemia; R09.02 Hypoxemia; I10 Essential (primary) hypertension
CPT/HCPCS: 36415; 71045; 71275; 80048; 80076; 81003; 81015; 82550; 82553; 82805; 82962; 83605; 83690; 83735; 83880; 84145; 84484; 85025; 85610; 85730; 87040; 87804; 93005; 94640; 96365; 96366; 96375; 99285; J1650; J2920; J2930; J3475; J7030; Q9967

== ENCOUNTER 2019-02-17 20:59 | Emergency (ER) | payer OTHER ==
[2019-02-17] MEDS ORDERED: LEVALBUTEROL 1.25 MG/3 ML NEB ONE (21:21)
[2019-02-17] MEDS ORDERED: METHYLPREDNISOLONE 125 MG INJ ONE (21:22)
[2019-02-17] MEDS ORDERED: NA CHLORIDE 0.9% 1,000 ML ONE (21:23)
--- NOTE | 2019-02-17 23:18 | ER ---
Nurse's Notes [facility] Name: Nessa Medrano Age: 63 yrs Sex: Female : 1955 Arrival Date: 02/17/2019 Time: 21:00 Bed 7 Private MD: Diagnosis: Unspecified asthma with (acute) exacerbation Presentation: 02/17 21:05 Presenting complaint: EMS states: came from home complaint of sudden shortness of rr5 breath and feels like her heart is raising. she has a colds started yesterday. wheezing sound noted albuterol 1 dose given. BP 190/100 initially latest BP of 158/80mmHg. HR 134 bpm. 21:05 Transition of care: patient was not received from another setting of care. Onset of rr5 symptoms was February 17, 2019. Risk Assessment: Do you want to hurt yourself or someone else? Patient reports no desire to harm self or others. Initial Sepsis Screen: Does the patient meet any 2 criteria? HR > 90 bpm. No. Patient's initial sepsis screen is negative. Does the patient have a suspected source of infection? Yes: Productive cough/pneumonia. Care prior to arrival: Medication(s) given: Albuterol Neb x 1. 21:05 Method Of Arrival: EMS: [facility] rr5 21:05 Acuity: CONRADO 3 rr5 Historical: - Allergies: 21:18 No Known Allergies; rr5 - Home Meds: 21:18 Breo Ellipta inhalation inhalation [Active]; pro air inhalation [Active]; Tricor 145 mg rr5 Oral tab 1 tab once daily [Active]; Xanax 0.5 mg Oral tab 1 tab 3 times per day [Active]; - PMHx: 21:18 Diabetes - NIDDM; Hyperlipidemia; Asthma; rr5 - PSHx: 21:18 Appendectomy; rr5 - Immunization history:: Adult Immunizations up to date, Flu vaccine is not up to date. - Social history:: Smoking status: Patient/guardian denies using tobacco, Patient/guardian denies using alcohol, street drugs. - Ebola Screening: : No symptoms or risks identified at this time. - Family history:: not pertinent. - Hospitalizations: : No recent hospitalization is reported. Screenin:11 Abuse screen: Denies threats or abuse. Denies injuries from another. Nutritional lp1 screening: No deficits noted. Tuberculosis screening: No symptoms or risk factors identified. Fall Risk None identified. Assessment: 21:10 General: Appears in no apparent distress. comfortable, Behavior is calm, cooperative, lp1 appropriate for age. Pain: Denies pain. Neuro: Level of Consciousness is awake, alert, obeys commands, Oriented to person, place, time, situation. Cardiovascular: Patient's skin is warm and dry. Rhythm is sinus tachycardia. Respiratory: Reports shortness of breath cough that is Airway is patent Respiratory effort is even, Respiratory pattern is regular, Breath sounds with wheezes bilaterally. Onset: The symptoms/episode began/occurred gradually, the patient has mild shortness of breath. GI: Abdomen is non-distended. : No signs and/or symptoms were reported regarding the genitourinary system. EENT: Reports nasal congestion. Derm: Skin is intact, Skin is dry, Skin is normal. Musculoskeletal: No deficits noted. 22:30 Reassessment: Patient and/or family updated on plan of care and expected duration. Pain lp1 level reassessed. Patient is alert, oriented x 3, equal unlabored respirations, skin warm/dry/pink. Patient states feeling better. Patient states symptoms have improved. 22:50 Respiratory: Airway is patent Respiratory effort is even, unlabored, Respiratory lp1 pattern is regular, Breath sounds are clear bilaterally. Vital Signs: 21:05 BP 170 / 79; Pulse 128; Resp 20; Temp 98.4; Pulse Ox 94% ; Weight 72.57 kg; Height 5 rr5 ft. 3 in. (160.02 cm); Pain 0/10; 21:30 BP 144 / 77; Pulse 119; Resp 17; Pulse Ox 99% on R/A; lp1 22:00 BP 155 / 75; Pulse 126; Resp 17; Pulse Ox 95% on R/A; lp1 22:46 BP 147 / 73; Pulse 123; Resp 17; Pulse Ox 95% on R/A; lp1 23:45 BP 136 / 65; Pulse 121; Resp 19; Pulse Ox 96% on R/A; lp1 21:05 Body Mass Index 28.34 (72.57 kg, 160.02 cm) rr5 ED Course: 21:00 Patient arrived in ED. ds1 21:08 Carrillo Jones MD is Attending Physician. rn 21:10 Henson, Tammy, RN is Primary Nurse. lp1 21:11 Patient has correct armband on for positive identification. Placed in gown. Bed in low lp1 position. Call light in reach. vocational adviser on. Pulse ox on. NIBP on. 21:11 Arm band placed on right wrist. lp1 21:11 Maintain EMS IV. Dressing intact. Good blood return noted. Site clean \T\ dry. Gauge \T\ lp 1 site: 22 g to L AC. 21:14 Triage completed. rr5 21:25 EKG done, by ED staff, reviewed by Carrillo Jones MD. rr5 21:35 XRAY Chest (1 view) In Process Unspecified. EDMS 22:16 Flu and/or RSV swab sent to lab. rr5 22:50 No provider procedures requiring assistance completed. lp1 23:50 IV discontinued, No redness/swelling at site. Pressure dressing applied. lp1 Administered Medications: 21:24 Drug: Xopenex (3) 1.25 mg Route: Inhalation; rr5 21:25 Drug: NS 0.9% 1000 ml Route: IV; Rate: 1000 ml; Site: left antecubital; rr5 23:50 Follow up: IV Status: Completed infusion; IV Intake: 1000ml lp1 21:25 Drug: SOLU-Medrol 125 mg Route: IVP; Site: left antecubital; rr5 23:50 Follow up: Response: No adverse reaction lp1 Intake: 23:50 IV: 1000ml; Total: 1000ml. lp1 Outcome: 23:17 Discharge ordered by . rn 23:50 Discharged to home ambulatory, with family. lp1 23:50 Condition: good 23:50 Discharge instructions given to patient, Instructed on discharge instructions, follow up and referral plans. medication usage, Demonstrated understanding of instructions, follow-up care, medications, Prescriptions given X 2. 23:51 Patient left the ED. lp1 Signatures: Dispatcher [employer] EDAL Lilian Osorio ds1 Carrillo Jones MD MD rn Pena, Laura, RN RN lp1 Ranjan Ratliff, SHA RN rr5 Corrections: (The following items were deleted from the chart) 21:12 21:10 Respiratory: Airway is patent Respiratory effort is even, Respiratory pattern is lp1 regular, Breath sounds with wheezes bilaterally. lp1
--- NOTE | 2019-02-17 23:19 | EDPHYS ---
Physician Documentation [facility] Name: Nessa Medrano Age: 63 yrs Sex: Female : 1955 Arrival Date: 02/17/2019 Time: 21:00 Bed 7 Private MD: ED Physician Carrillo Jones HPI: 02/17 21:57 This 63 yrs old Female presents to ER via EMS with complaints of Shortness Of rn Breath. 21:57 The patient has shortness of breath at rest. Onset: The symptoms/episode began/occurred rn yesterday. Duration: The symptoms are continuous. The patient's shortness of breath is aggravated by coughing, exertion, light activity. Associated signs and symptoms: Pertinent positives: non-productive cough, Pertinent negatives: dizziness, fever, hemoptysis, loss of consciousness, vomiting. Severity of symptoms: At their worst the symptoms were moderate in the emergency department the symptoms have improved. The patient has experienced similar episodes in the past. Reports cough/cold/fever for 2 days, worse today, called 911 because had difficulty breathing not relieved with albuterol, given breathing treatment by EMS with marked improvement of breathing, but still not back to baseline. No hemoptysis, no hx of dvt/pe.. Historical: - Allergies: 21:18 No Known Allergies; rr5 - Home Meds: 21:18 Breo Ellipta inhalation inhalation [Active]; pro air inhalation [Active]; Tricor 145 mg rr5 Oral tab 1 tab once daily [Active]; Xanax 0.5 mg Oral tab 1 tab 3 times per day [Active]; - PMHx: 21:18 Diabetes - NIDDM; Hyperlipidemia; Asthma; rr5 - PSHx: 21:18 Appendectomy; rr5 - Immunization history:: Adult Immunizations up to date, Flu vaccine is not up to date. - Social history:: Smoking status: Patient/guardian denies using tobacco, Patient/guardian denies using alcohol, street drugs. - Ebola Screening: : No symptoms or risks identified at this time. - Family history:: not pertinent. - Hospitalizations: : No recent hospitalization is reported. ROS: 21:57 Constitutional: + subjective fever Eyes: Negative for injury, pain, redness, and internet marketing coordinator, Cardiovascular: Negative for chest pain, palpitations, and edema, Respiratory: Negative for pleuritic chest pain, + cough and wheezing Abdomen/GI: Negative for abdominal pain, nausea, vomiting, diarrhea, and constipation, MS/Extremity: Negative for injury and deformity, Skin: Negative for injury, rash, and discoloration, Neuro: Negative for headache, weakness, numbness, tingling, and seizure. Exam: 21:57 Constitutional: This is a well developed, well nourished patient who is awake, alert, rn and in no acute distress. Head/Face: Normocephalic, atraumatic. ENT: dry MM, no stridor or swelling Cardiovascular: tachycardic, regular, no murmur Respiratory: + faint exp wheezing with mild tachypnea, no retractions, speaking full sentences Abdomen/GI: soft, non-tender MS/ Extremity: Pulses equal, no cyanosis. Neurovascular intact. Full, normal range of motion. Equal circumference. Neuro: Awake and alert, GCS 15, oriented to person, place, time, and situation. Vital Signs: 21:05 BP 170 / 79; Pulse 128; Resp 20; Temp 98.4; Pulse Ox 94% ; Weight 72.57 kg; Height 5 rr5 ft. 3 in. (160.02 cm); Pain 0/10; 21:30 BP 144 / 77; Pulse 119; Resp 17; Pulse Ox 99% on R/A; lp1 22:00 BP 155 / 75; Pulse 126; Resp 17; Pulse Ox 95% on R/A; lp1 22:46 BP 147 / 73; Pulse 123; Resp 17; Pulse Ox 95% on R/A; lp1 23:45 BP 136 / 65; Pulse 121; Resp 19; Pulse Ox 96% on R/A; lp1 21:05 Body Mass Index 28.34 (72.57 kg, 160.02 cm) rr5 MDM: 21:08 Patient medically screened. rn 23:15 Differential diagnosis: Anxiety Reaction asthma, Bronchitis Myocardial Infarction rn pneumonia, Pneumothorax. Data reviewed: vital signs, nurses notes, lab test result(s), EKG, radiologic studies, plain films, and as a result, I will discharge patient. Test interpretation: by ED physician or midlevel provider: ECG, plain radiologic studies, CXR without pneumothorax or pneumonia. Counseling: I had a detailed discussion with the patient and/or guardian regarding: the historical points, exam findings, and any diagnostic results supporting the discharge/admit diagnosis, lab results, radiology results, the need for outpatient follow up, to return to the emergency department if symptoms worsen or persist or if there are any questions or concerns that arise at home. Response to treatment: the patient's symptoms have markedly improved after treatment, patient is well hydrated. and as a result, I will discharge patient. Special discussion: I discussed with the patient/guardian in detail that at this point there is no indication for admission to the hospital. It is understood, however, that if the symptoms persist or worsen the patient needs to return immediately for re-evaluation. ED course: Pt feels much better, no longer wheezing, RR improved, speaking full sentences and ambulatory without distress, reports "HR always in 120s", states often checks BP at work and heart rate always in 120s. States feels fine. Will dc home as asthma exacerbation and viral syndrome. Return precautions given and understood.. 02/17 22:09 Order name: Flu; Complete Time: 22:40 rn 02/17 21:17 Order name: XRAY Chest (1 view) rn 02/17 21:17 Order name: EKG; Complete Time: 21:17 rn 02/17 21:17 Order name: IV Start; Complete Time: 21:19 rn 02/17 21:17 Order name: EKG - Nurse/Tech; Complete Time: 21:25 rn Administered Medications: 21:24 Drug: Xopenex (3) 1.25 mg Route: Inhalation; rr5 21:25 Drug: NS 0.9% 1000 ml Route: IV; Rate: 1000 ml; Site: left antecubital; rr5 23:50 Follow up: IV Status: Completed infusion; IV Intake: 1000ml lp1 21:25 Drug: SOLU-Medrol 125 mg Route: IVP; Site: left antecubital; rr5 23:50 Follow up: Response: No adverse reaction lp1 Disposition: 02/17/19 23:17 Discharged to Home. Impression: Unspecified asthma with (acute) exacerbation. - Condition is Stable. - Discharge Instructions: Asthma, Adult. - Prescriptions for Prednisone 20 mg Oral Tablet - take 3 tablet by ORAL route once daily for 5 days; 15 tablet. Albuterol Sulfate 90 mcg/actuation - inhale 1-2 puff by INHALATION route every 4-6 hours; 1 Inhaler. - Medication Reconciliation Form, Thank You Letter, Antibiotic Education, Prescription Opioid Use form. - Follow up: Private Physician; When: As needed; Reason: Recheck today's complaints, Re-evaluation by your physician. - Problem is an acute exacerbation. - Symptoms have improved. Signatures: Dispatcher [employer] EDMS Carrillo Jones MD MD rn Pena, Laura, RN RN lp1 Ranjan Ratliff RN RN rr5 Corrections: (The following items were deleted from the chart) 23:51 23:17 02/17/2019 23:17 Discharged to Home. Impression: Unspecified asthma with (acute) lp1 exacerbation. Condition is Stable. Forms are Medication Reconciliation Form, Thank You Letter, Antibiotic Education, Prescription Opioid Use. Follow up: Private Physician; When: As needed; Reason: Recheck today's complaints, Re-evaluation by your physician. Problem is an acute exacerbation. Symptoms have improved. rn
[2019-02-17 23:57] VITALS: TEMP 98.4
[2019-02-18 00:14] VITALS: BP 136/65; O2SAT 96
--- NOTE | 2019-02-18 09:31 | RAD REPORT ---
EXAM DESCRIPTION: Amrita Single View02/17/2019 9:38 pm CLINICAL HISTORY: Cough COMPARISON: 2018 FINDINGS: Right medial hilum is mildly prominent. Lungs otherwise appear clear. Heart is normal siz e IMPRESSION: Right medial hilum is mildly prominent. This probably represents normal vascularity. Ho wever as lymphadenopathy can have this appearance it is recommended that the patient have PA and late ral chest films for further evaluation
--- NOTE | 2019-02-18 11:44 | EKG ---
Test Date: 2019-02-17 Test Time: 21:28:30 Prototyper: CASTRO MEASUREMENT RESULTS: Intervals: Rate: 114 DC: 136 QRSD: 92 QT: 340 QTc: 468 [place]: P: 31 DC: 136 QRS: 62 T: 33 INTERPRETIVE STATEMENTS: Sinus tachycardia Possible Left atrial enlargement Borderline ECG Compared to ECG 06/23/2017 13:15:18 No significant changes Electronically Signed On 02-18-19 11:42:01 ASSISTIVE TECHNOLOGY TRAINER by Matthew Stein
== END 2019-02-17 23:51 | disposition home or self-care (01) ==
LOC: ER 20:59
DX: J45.901 Unspecified asthma with (acute) exacerbation (principal); E11.9 Type 2 diabetes mellitus without complications; E78.5 Hyperlipidemia, unspecified
CPT/HCPCS: 96361; 93005; 87804 ×2; 71045; 96374; 99285; J7030; J2930